=== PATIENT | female | born 1940 | race Caucasian/White ===

== ENCOUNTER 2017-05-16 12:00 | Emergency (ER) | payer MEDICARE, OTHER ==
[2017-05-16 12:00] VITALS: BMI 26.4
[2017-05-16 12:06] VITALS: BP 158/69; PULSE 65; RESP 16; TEMP 97.3; O2SAT 100
[2017-05-16] MEDS: Naproxen 500 MG TAB PO STA (13:14)
--- NOTE | 2017-05-16 13:14 | ED PDOC ---
HPI: Trauma/Fall - HPI Time Seen by Provider: 05/16/17 12:44 Chief Complaint (Nursing): Trauma Chief Complaint (Provider): Right hand and wrist pain History Per: Patient History/Exam Limitations: no limitations Onset/Duration Of Symptoms: Mins Injury Occurred (Timing): Just Before Arrival Location Of Injury: Right: Hand, Wrist Additional Complaint(s): 76yo female, presents to ER for evaluation after she slipped and fell prior to arrival. Patient reports she injured her right hand and is currently complaining of right hand and wrist pain. She also states she bit her lip during the fall and is complaining of some mouth pain. She also reports mild knee pain as she landed on her knee as well. No other complaints. Past Medical History Reviewed: Historical Data, Nursing Documentation, Vital Signs Vital Signs: Last Vital Signs Temp 97.3 F L 05/16/17 12:04 Pulse 65 05/16/17 12:04 Resp 16 05/16/17 12:04 BP 158/69 H 05/16/17 12:04 Pulse Ox 100 05/16/17 12:04 - Medical History PMH: Asthma, HTN, Hyperthyroidism Denies: Chronic Kidney Disease - Surgical History Surgical History: No Surg Hx - Family History Family History: States: No Known Family Hx - Immunization History Hx Tetanus Toxoid Vaccination: No Hx Influenza Vaccination: No Hx Pneumococcal Vaccination: No - Home Medications Home Medications: Ambulatory Orders Medication Instructions Recorded Albuterol HFA [Ventolin HFA 90 90 mcg INH PRN PRN 12/01/13 mcg/actuation (8 g)] Aspirin 81 mg PO DAILY 12/01/13 Cilostazol 50 mg PO DAILY 12/01/13 Hydrochlorothiazide/Losartan 100 mg PO DAILY 12/01/13 [Losartan Potassium and Hydrochlorothiazide 12] Levothyroxine Sodium 25 mcg PO DAILY 12/01/13 [Levothyroxine] Nebivolol Hydrochloride [Bystolic] 10 mg PO DAILY 12/01/13 Vitamin D 1,000 iu PO DAILY 12/01/13 - Allergies Allergies/Adverse Reactions: Allergies Allergy/AdvReac Type Severity Reaction Status Date / Time No Known Allergies Allergy Verified 12/01/13 09:34 Review of Systems ROS Statement: Except As Marked, All Systems Reviewed And Found Negative Musculoskeletal: Positive for: Hand Pain (right wrist and hand pain), Leg Pain ( bilateral knee pain) Physical Exam - Reviewed Nursing Documentation Reviewed: Yes Vital Signs Reviewed: Yes - Physical Exam Appears: Positive for: Non-toxic, No Acute Distress Head Exam: Positive for: ATRAUMATIC, NORMAL INSPECTION, NORMOCEPHALIC Skin: Negative for: Normal Color (Abrasion, lower innner lip) Eye Exam: Positive for: Normal appearance ENT: Positive for: Normal ENT Inspection Neck: Positive for: Normal, Supple Cardiovascular/Chest: Positive for: Regular Rate, Rhythm Respiratory: Positive for: Normal Breath Sounds. Negative for: Respiratory Distress Pulses-Radial (L): 2+ Pulses-Radial (R): 2+ Extremity: Positive for: Normal ROM, Tenderness (right snuffbox tenderness). Negative for: Swelling Neurologic/Psych: Positive for: Alert, Oriented. Negative for: Motor/Sensory Deficits - ECG O2 Sat by Pulse Oximetry: 100 (RA) Pulse Ox Interpretation: Normal Medical Decision Making Medical Decision Making: Impression: Right hand and wrist pain s/p fall Plan: -- Naproxen 500 mg PO No definitive fracture seen on x-ray. Discussed f/u with PMD and repeat x-ray in 1 week. Velcro thumb spica placed. Scribe Attestation: Documented by Jill Henry acting as a scribe for BECCA Castro Provider Attestation: All medical record entries made by the Scribe were at my direction and personally dictated by me. I have reviewed the chart and agree that the record accurately reflects my personal performance of the history, physical exam, medical decision making, and the department course for this patient. I have also personally directed, reviewed, and agree with the discharge instructions and disposition. Disposition - Clinical Impression Clinical Impression: Hand injury - Disposition Disposition: Routine/Home Disposition Time: 14:30 Condition: GOOD Additional Instructions: Please get repeat x-ray in 1 week. Instructions: Common Wrist Injuries Forms: [employer] (Serbian)
--- NOTE | 2017-05-16 14:33 | RAD ---
PROCEDURE: Right Hand Radiographs. HISTORY: Pain, snuff box after fall COMPARISON: None. FINDINGS: BONES: No acute fracture. JOINTS: Unremarkable. SOFT TISSUES: Normal. OTHER FINDINGS: None. IMPRESSION: No demonstrated fracture or dislocation.
== END 2017-05-16 14:55 | disposition home or self-care (01) ==
LOC: H.ER 12:00
DX: S69.91XA Unspecified injury of right wrist, hand and finger(s), initial encounter (principal); W19.XXXA Unspecified fall, initial encounter

== ENCOUNTER 2017-06-22 08:47 | Day surgery (SDC) | payer MEDICARE ==
[2017-06-22] MEDS ORDERED: Lactated Ringer's 1,000 ML IV ONE (10:14)
[2017-06-22] MEDS ORDERED: Propofol 10 mg/ml Inj (20 ML) ONE (11:29)
[2017-06-22 12:02] VITALS: TEMP 97; O2SAT 100
[2017-06-22 12:10] VITALS: BP 126/54; PULSE 50; RESP 14
== END 2017-06-22 12:25 | disposition home or self-care (01) ==
LOC: H.ENDO 08:47
PROVIDERS: ATTEND Internal Medicine Gastroenterology
DX: Z86.010 Personal history of colon polyps (principal); J45.909 Unspecified asthma, uncomplicated; I10 Essential (primary) hypertension; E03.9 Hypothyroidism, unspecified
CPT/HCPCS: 45378; J2001; J2704; J7120